=== PATIENT | female | born 1980 | race Hispanic/Latino ===

== ENCOUNTER 2017-11-06 08:50 | Day surgery (SDC) | payer BC ==
[2017-11-06] MEDS ORDERED: Lactated Ringer's 1,000 ML IV ONE ×3 (09:45→11:30)
[2017-11-06] MEDS ORDERED: Bupivacaine 0.5% Inj(30mL) ONE (10:14)
[2017-11-06 10:28] LABS: HEMOGLOBIN 14.3 g/dL (12.0-16.0); MEAN CELL VOLUME 91.1 fl (81.0-99.0); MEAN CORPUSCULAR HEMOGLOBIN 31.2 pg (27.0-31.0); MEAN CORPUSCULAR HGB CONC 34.3 g/dL (33.0-37.0); RBC 4.59 Mil/uL (3.80-5.20); RED CELL DISTRIBUTION WIDTH 13.3 % (11.5-14.5); WHITE BLOOD COUNT 4.5 K/uL (4.8-10.8)
[2017-11-06] MEDS ORDERED: Silver Nitrate Topical - Stick ONE (10:28)
[2017-11-06] MEDS ORDERED: ePHEDrine 50 mg/ml Inj ONE (10:49)
[2017-11-06] MEDS ORDERED: Succinylcholine 200 mg/10 ml Inj IV ONE (10:49)
[2017-11-06] MEDS ORDERED: Propofol 10 mg/ml Inj (20 ML) ONE (10:49)
[2017-11-06] MEDS ORDERED: Midazolam 2 MG/2 ML VIAL ONE (10:49)
[2017-11-06] MEDS ORDERED: Rocuronium 10 mg/ml (5 ml) ONE (10:49)
[2017-11-06] MEDS ORDERED: Lidocaine 4% (Laryng-O-Jet) Kit MM ONE (10:50)
[2017-11-06] MEDS ORDERED: Dexamethasone 4 mg/1 ml ONE (11:46)
[2017-11-06] MEDS ORDERED: Desflurane Inhalation Anesthetic Liq (240 ml) ONE (11:54)
[2017-11-06] MEDS ORDERED: Neostigmine 1:1000 (1 mg/ml) Inj ONE (12:41)
[2017-11-06] MEDS ORDERED: Oxycodone/Acetaminophen 5/325 mg Tab PO PRN (13:16)
[2017-11-06] MEDS ORDERED: HYDROmorphone 0.5 mg/0.5 ml ISec ONE (13:25)
[2017-11-06] MEDS: HYDROmorphone 0.5 mg/0.5 ml ISec IVP PRN ×2 (13:30→14:00)
[2017-11-06] MEDS ORDERED: Lactated Ringer's 1,000 ML IV SCH ×2 (13:30)
--- NOTE | 2017-11-06 20:07 | OP ---
PROCEDURE DATE: PREOPERATIVE DIAGNOSES: Pelvic pain, dysmenorrhea, dyspareunia, and rule out endometriosis. POSTOPERATIVE DIAGNOSIS: Pelvic endometriosis. PROCEDURE PERFORMED: Cystoscopy with bilateral ureteral catheterization and injection of dye, diagnostic hysteroscopy, dilatation and curettage, da Kristi robotic laparoscopy, excision of endometriosis, bilateral ureterolysis, and peritoneal ablation. SURGEON: Tyson Ch MD DISTRICT MANAGER [employer] SALES: Dejan Sanchez ESTIMATED BLOOD LOSS: Minimal. COMPLICATIONS: None. SPECIMENS: Samples of peritoneum from the right pelvic sidewall, left pelvic sidewall, posterior cervix, and cul-de-sac sent o pathology. INDICATION FOR PROCEDURE: The patient is a 37-year-old with a history of pelvic pain and prior surgery for endometriosis. Prior to the surgery, she was counseled with regards to risks and benefits of the surgery including, but not limited to bowel or bladder injury and fistula formation. She was also informed about the likelihood that the surgery may be able to identify her problem and solve it. She consented to the surgery and she was taken to the OR and the procedure was started. DESCRIPTION OF PROCEDURE: After adequate anesthesia was obtained, the patient was placed in dorsal lithotomy position with extreme care not to hyperextend or hyperflex her hips, also every area prone to pressure was extensively padded. A time-out was taken according to hospital policy, and at this point, the procedure was started. A cystoscope was inserted into the bladder under direct visualization and the bladder was visualized and appearing to be free of lesions, tumors, or masses. Both ureteral ostia were in the normal anatomical position. The left ureter was identified and it was cannulating using an open-ended 5-Tajik catheter all the way to the distal ureter and 5 mL of IC-Green were injected. Additionally in the same way, the right ureter was also cannulated all the way to the distal ureter and 5 mL of IC-Green were injected. At this point, attention was in the vaginal area after placing a Schwartz in the bladder where a speculum was placed in the vagina. The anterior lip of the cervix was grasped. The cervix was dilated and a hysteroscope was inserted into the uterine cavity. There appeared to be some polypoid appearance and so a gentle D and C was performed. At this point, attention was in the abdomen where after regowning and regloving, an open laparoscopy was performed by making an incision on the umbilicus and carried down to the fascia and entered the peritoneum in a sharp fashion. At this point, a cannula was placed and the pelvis was visualized. The findings were as follows. The bladder was free of lesions where there was evidence of extensive inflammatory and endometriosis changes in multiple areas. At this point under direct visualization, three additional ports were inserted, left upper quadrant, left mid quadrant, and right upper quadrant. At this point, the procedure was started. The first part of the procedure was in the left hand side where areas of endometriosis were immediately identified. The ureter was identified with the aid of fluorescent technology, the peritoneum was entered in the retroperitoneal space and elevated and a progressive dissection was performed lateralizing the ureter and medialized the peritoneum, a large area of peritoneum all the way down to the uterosacral ligament. The excision was extended down to the left cul-de-sac area, which was also excised completely. At this point, attention was then posterior aspect of the cervix with further excision was performed. A small varicosities in the posterior aspect of the cervix was identified and coagulated. At this point, attention was on the right cul-de-sac area where again an area of endometriosis was identified and excised. Attention was now on the right hand side where after elevating the ovary, the retroperitoneum was entered and a full dissection was performed with extreme care to avoid the iliac vessels as well as the uterus, which was lateralized. A large area of peritoneum containing endometriosis was obtained. The incision was further continued all the way down to the floor of the pelvis with further excision of peritoneum and superficial endometriosis. At this point, it was checked for hemostasis and appeared to be excellent. The plasma laser was utilized to ablate areas of inflammatory appearance, there were both in the posterior aspect of the uterus as well in the cul-de-sac area. After performing this further procedure, it was checked for hemostasis which was good. The instruments were removed. The da Kristi robot was undocked. The abdomen desufflated. The incision in fascia was closed with 0 PDS and on the fascia with 4-0 Monocryl. At the end of the procedure, all tapes and instruments counts were correct. The patient tolerated the procedure well and was taken to recovery room in excellent condition. Tyson Ch MD MTDJohnnie
[2017-11-06 23:19] VITALS: PULSE 78; RESP 20; TEMP 98.3; O2SAT 100
[2017-11-06 23:24] VITALS: BP 113/67
== END 2017-11-06 23:00 | disposition home or self-care (01) ==
LOC: H.OPSURG 08:50 → H.PEDS 20:19 → H.OPSURG 23:00
PROVIDERS: ATTEND Obstetrics & Gynecology Reproductive Endocrinology
DX: R10.2 Pelvic and perineal pain (principal); K29.50 Unspecified chronic gastritis without bleeding; N94.6 Dysmenorrhea, unspecified; N94.10 Unspecified dyspareunia
CPT/HCPCS: 36415; 58563; 58662; 85027; 86850; 86900; 88305; C1729; J0330; J0690; J1100; J1170; J1885; J2001; J2250; J2405; J2704; J2710; J3010; J7030; J7040; J7120